=== PATIENT | female | born 1955 | race Caucasian/White ===

== ENCOUNTER 2017-02-27 20:17 | Inpatient (IN) | payer OTHER, MEDICAID ==
[~2017-02-27] VITALS: Ht 165.1 cm; Wt 70.3 kg
[2017-02-27 20:27] VITALS: BP_SYST 141
[2017-02-27] MEDS ORDERED: NACL 0.9% 1,000 ML IV ONE (21:15)
[2017-02-27] MEDS ORDERED: ONDANSETRON HCL 4 MG/2 ML VIAL IVP ONE (21:15)
[2017-02-27] MEDS ORDERED: KETOROLAC TROMETHAMINE 30 MG VIAL IVP ONE (21:30)
[2017-02-27 21:56] LABS: BILIRUBIN,URINE NEGATIVE (NEGATIVE); BLOOD, URINE 1+ (NEGATIVE); CLARITY/URINE CLOUDY (CLEAR); COLOR,URINE YELLOW (YELLOW); GLUCOSE,URINE NEGATIVE (NEGATIVE); KETONES,URINE TRACE (NEGATIVE); LEUKOCYTE ESTERASE ,URINE 2+ (NEGATIVE); NITRITE, URINE POSITIVE (NEGATIVE); PROTEIN URINE NEGATIVE (NEGATIVE); UROBILINOGEN,URINE 0.2 (0.2-1.0)
[2017-02-27] MEDS ORDERED: CARV3.1246 PO (22:03)
[2017-02-27] MEDS ORDERED: ESCI10TA PO (22:03)
[2017-02-27] MEDS ORDERED: MELA3TAB37 PO (22:03)
[2017-02-27] MEDS ORDERED: LISI-209 PO (22:03)
[2017-02-27] MEDS ORDERED: OMEP20CA10 PO (22:03)
[2017-02-27] MEDS ORDERED: INSU100V11 SQ (22:03)
[2017-02-27] MEDS ORDERED: PHEN100C4 PO (22:03)
[2017-02-27] MEDS ORDERED: ACET325T53 PO (22:03)
[2017-02-27 22:06] LABS: CREATININE 0.81 mg/dL (0.55-1.30)
[2017-02-27 22:11] LABS: ALBUMIN 3.6 g/dL (3.4-4.8); BASOPHILS # (AUTO) 0.4 K/uL (0.0-0.2); BASOPHILS % (AUTO) 4.1 % (0.0-2.0); EOSINOPHILS % (AUTO) 0.2 % (0.0-4.0); HEMATOCRIT 39.6 % (36-48); HEMOGLOBIN 13.1 g/dL (12.0-16.0); LYMPHOCYTES # (AUTO) 1.2 K/uL (1.0-5.5); LYMPHOCYTES % (AUTO) 11.7 % (20.5-51.5); MEAN CORPUSCULAR HEMOGLOBIN 30 pg (27-31); MEAN CORPUSCULAR HGB CONC 33 % (32-36); MEAN CORPUSCULAR VOLUME 92 fL (79.0-98.0); MONOCYTES # (AUTO) 0.4 K/uL (0.0-1.0); MONOCYTES % (AUTO) 3.8 % (1.7-9.3); NEUTROPHILS # (AUTO) 8.1 K/uL (1.8-7.7); NEUTROPHILS % (AUTO) 80.2 % (40.0-70.0); PLATELET COUNT (AUTO) 244 K/uL (130-430); RED BLOOD CELL COUNT(AUTO) 4.33 MIL/uL (4.2-6.2); RED CELL DISTRIBUTION WIDTH 12.7 % (9.0-15.0); TOTAL BILIRUBIN 0.5 mg/dL (0.0-1.0); WHITE BLOOD COUNT (AUTO) 10.1 K/uL (4.8-10.8)
[2017-02-27] MEDS ORDERED: LEVOFLOXACIN 500 MG/D5W 100 ML IV ONE (22:15)
[2017-02-27 22:25] LABS: WBC,URINE 50-80 /HPF (0-3)
[2017-02-27 22:26] LABS: BACTERIA,URINE MANY /HPF (None Seen)
[2017-02-27] MEDS ORDERED: ACETAMINOPHEN 325 MG TABLET PO PRN ×2 (23:00→23:15)
[2017-02-27] MEDS ORDERED: ONDANSETRON HCL 4 MG/2 ML VIAL IVP PRN (23:00)
[2017-02-27 23:30] VITALS: BP_SYST 143
[2017-02-27] MEDS ORDERED: CITALOPRAM HYDROBROMIDE 20 MG TABLET PO ONE (23:45)
[2017-02-27] MEDS ORDERED: PHENYTOIN 100 MG/4 ML UDC (DILANTIN) PO ONE (23:45)
[2017-02-27] MEDS ORDERED: CARVEDILOL 3.125 MG TABLET (COREG) PO ONE (23:45)
[2017-02-27] MEDS ORDERED: OMEPRAZOLE 20 MG CAPSULE.DR (PriLOSEC) PO ONE (23:45)
[2017-02-27] MEDS ORDERED: LISINOPRIL 5 MG TABLET PO ONE (23:45)
[2017-02-28 00:45] VITALS: BP_SYST 125
[2017-02-28] MEDS ORDERED: HALOPERIDOL LACTATE 5 MG/ML VIAL ONE (01:40)
[2017-02-28] MEDS: HALOPERIDOL LACTATE 5 MG/ML VIAL IM PRN ×2 (01:47→21:05)
[2017-02-28] MEDS ORDERED: cefTRIAXone 1 GM IVPB PREMIX 50 ML IV ONE ×2 (02:07)
[2017-02-28 04:52] VITALS: BP_SYST 115
[2017-02-28 07:44] LABS: BASOPHILS % (AUTO) 0.4 % (0.0-2.0); EOSINOPHILS # (AUTO) 0.1 K/uL (0.0-0.4); EOSINOPHILS % (AUTO) 1.4 % (0.0-4.0); HEMATOCRIT 38.3 % (36-48); LYMPHOCYTES # (AUTO) 2.2 K/uL (1.0-5.5); LYMPHOCYTES % (AUTO) 24.1 % (20.5-51.5); MEAN CORPUSCULAR HEMOGLOBIN 31 pg (27-31); MEAN CORPUSCULAR HGB CONC 34 % (32-36); MEAN CORPUSCULAR VOLUME 91 fL (79.0-98.0); MONOCYTES # (AUTO) 0.5 K/uL (0.0-1.0); MONOCYTES % (AUTO) 5.4 % (1.7-9.3); NEUTROPHILS # (AUTO) 6.3 K/uL (1.8-7.7); NEUTROPHILS % (AUTO) 68.7 % (40.0-70.0); PLATELET COUNT (AUTO) 225 K/uL (130-430); RED CELL DISTRIBUTION WIDTH 12.6 % (9.0-15.0); WHITE BLOOD COUNT (AUTO) 9.1 K/uL (4.8-10.8)
[2017-02-28 07:47] LABS: CALCIUM 8.9 mg/dL (8.4-11.0); CREATININE 0.81 mg/dL (0.55-1.30); POTASSIUM 4.1 mmol/L (3.5-5.1)
[2017-02-28 08:00] VITALS: BP_SYST 119
[2017-02-28] MEDS: CITALOPRAM HYDROBROMIDE 20 MG TABLET PO SCH (08:14)
[2017-02-28] MEDS: OMEPRAZOLE 20 MG CAPSULE.DR (PriLOSEC) PO SCH (08:15)
[2017-02-28] MEDS: PHENYTOIN 100 MG/4 ML UDC (DILANTIN) PO SCH ×2 (08:15→20:12)
[2017-02-28] MEDS: LISINOPRIL 5 MG TABLET PO SCH (08:15)
[2017-02-28] MEDS: CARVEDILOL 3.125 MG TABLET (COREG) PO SCH ×2 (08:16→20:17)
[2017-02-28] MEDS: INSULIN ASPART 100 UNITS/ML, 10 ML VIAL (NovoLOG) SUBCUT PRN ×3 (08:25→20:15)
[2017-02-28 11:25] VITALS: BP_SYST 114
[2017-02-28 15:31] VITALS: BP_SYST 124
[2017-02-28 20:00] VITALS: BP_SYST 168
[2017-02-28] MEDS: cefTRIAXone 1 GM IVPB PREMIX 50 ML IV SCH (20:16)
[2017-03-01 00:09] VITALS: BP_SYST 145
[2017-03-01 04:49] VITALS: BP_SYST 144
[2017-03-01 08:24] VITALS: BP_SYST 133
[2017-03-01] MEDS: PHENYTOIN 100 MG/4 ML UDC (DILANTIN) PO SCH ×2 (09:25→20:22)
[2017-03-01] MEDS: OMEPRAZOLE 20 MG CAPSULE.DR (PriLOSEC) PO SCH (09:27)
[2017-03-01] MEDS: LISINOPRIL 5 MG TABLET PO SCH (09:27)
[2017-03-01] MEDS: CITALOPRAM HYDROBROMIDE 20 MG TABLET PO SCH (09:27)
[2017-03-01] MEDS: CARVEDILOL 3.125 MG TABLET (COREG) PO SCH ×2 (09:28→20:22)
[2017-03-01 11:25] VITALS: BP_SYST 131
[2017-03-01] MEDS: INSULIN ASPART 100 UNITS/ML, 10 ML VIAL (NovoLOG) SUBCUT PRN ×2 (11:38→20:26)
[2017-03-01 15:23] VITALS: BP_SYST 109
[2017-03-01] MEDS: cefTRIAXone 1 GM IVPB PREMIX 50 ML IV SCH (20:23)
[2017-03-01 21:17] VITALS: BP_SYST 117
[2017-03-02 01:09] VITALS: BP_SYST 137
[2017-03-02 04:07] VITALS: BP_SYST 129
[2017-03-02] MEDS: PHENYTOIN 100 MG/4 ML UDC (DILANTIN) PO SCH (10:29)
[2017-03-02] MEDS: CITALOPRAM HYDROBROMIDE 20 MG TABLET PO SCH (10:29)
[2017-03-02] MEDS: OMEPRAZOLE 20 MG CAPSULE.DR (PriLOSEC) PO SCH (10:29)
[2017-03-02] MEDS: CARVEDILOL 3.125 MG TABLET (COREG) PO SCH (10:30)
[2017-03-02] MEDS: LISINOPRIL 5 MG TABLET PO SCH (10:31)
[2017-03-02 11:25] VITALS: BP_SYST 130
[2017-03-02] MEDS: INSULIN ASPART 100 UNITS/ML, 10 ML VIAL (NovoLOG) SUBCUT PRN ×2 (12:38→16:25)
[2017-03-02] MEDS ORDERED: LEVO500T20 PO (13:30)
[2017-03-02 15:25] VITALS: BP_SYST 127
[2017-03-02 16:31] VITALS: BP_SYST 127
== END 2017-03-02 18:15 | DRG 690 ==
LOC: SED 20:17 → SMU 22:52
PROVIDERS: ADMIT Family Medicine; ATTEND Family Medicine
DX: N39.0 Urinary tract infection, site not specified (principal); F03.91 Unspecified dementia, unspecified severity, with behavioral disturbance; E11.9 Type 2 diabetes mellitus without complications; I10 Essential (primary) hypertension; F32.9 Major depressive disorder, single episode, unspecified; F41.9 Anxiety disorder, unspecified; E78.5 Hyperlipidemia, unspecified; G40.909 Epilepsy, unspecified, not intractable, without status epilepticus; M19.90 Unspecified osteoarthritis, unspecified site; R13.10 Dysphagia, unspecified; Z88.6 Allergy status to analgesic agent; Z79.899 Other long term (current) drug therapy; I69.391 Dysphagia following cerebral infarction
CPT/HCPCS: 36415; 80048; 80053; 81000-TC; 82962; 83690-TC; 85025; 85610-TC; 85730-TC; 87040-TC; 87045-TC; 87081; 87086; 87186-TC; 89055; 96361; 96365; 96375; 97530-GP; 99285; J0696; J1630; J1815; J1885; J1956; J2405; J7030; J7050